=== PATIENT | male | born 1985 | race Caucasian/White ===

== ENCOUNTER 2020-01-10 10:18 | Emergency (ER) | payer MEDICAID, SELFPAY ==
[2020-01-10 10:23] VITALS: BP 155/95; PULSE 84; RESP 18; TEMP 36.6; O2SAT 98
--- NOTE | 2020-01-10 10:27 | ED.GENADUL_ITS ---
Discharge Plan Disposition Patient Disposition: HOME Condition: Fair Discharge Details Chief Complaint: AnimalBite Clinical Impression: Dog bite Primary Care Provider: None,None ED Provider: Jackie Hanna Home Meds and New Rx's Prescriptions: New amoxicillin-pot clavulanate [Augmentin] 875-125 mg tablet 1 tab PO BID Qty: 14 RF: 0 Discharge Instructions Instructions: Animal Bite (ED) Additional Instructions: Encourage rest, ice, elevation. Tylenol and/or ibuprofen as needed for discomfort. I am very concerned about potential for infection. Please take the antibiotic as prescribed. Please continue with splint to help with discomfort. You will need close follow-up, please call orthopedics Sunday to schedule follow-up for Sunday. Number listed below. Tetanus is updated today. If you develop fever/chills, increased pain, purulent discharge, redness or other new/worsening symptom please seek care urgently once again. Referrals: Luis Howell MD [ [facility] STAFF PHYSICIAN] - Medical Decision Making <IFRAH Mota - Last Filed: 01/10/20 11:50> Patient is a pleasant [id number] 34-year-old gentleman presenting today with chief complaint of dog bite to the left hand and wrist. Reports that this happened yesterday. He reports he was at his friend's house and had an unprovoked attack from the friends serg. Unknown last tetanus. He reports that he was able to verify dog's vaccination and that he is up-to-date. Suffered puncture wounds to the dorsal aspect of the left hand, wrist and 1 to the left side of the chest. Denies any shortness of breath or chest pain. No fevers or chills. States that he did wash wounds yesterday. On exam, patient is resting comfortably. He appears nontoxic. He does have notable swelling at to the dorsal aspect of the left wrist and hand. Patient has 2 puncture wounds each approximately 1 cm in length dorsal aspect of the left wrist and one smaller puncture wound on the dorsal aspect of the left hand along the radial side. Patient also has a palmar laceration at the ulnar crease of the wrist. He has limited range of motion of the wrist. He has good flexion-extension of the digits. No evidence of flexor extensor tenosynovitis. Patient has serosanguineous discharge from the dorsal wrist puncture wounds. No warmth or purulent drainage. No erythema. He has good capillary refill. Sensation is intact. He has 2+ distal pulses and brisk capillary refill. I am concerned for potential fracture given the type of dog MD crush injury to the hand and wrist. Plan for x-ray to evaluate for fracture or retained foreign body. Will re-wash the wounds. Update tetanus. Reporting has been completed regarding dog bite. Will give Tylenol and ibuprofen for discomfort. Patient was started on Augmentin. Will obtain x-rays of left wrist and hand. FINDINGS: Bones/joints: There is no evidence of acute fracture.There is no evidence of malalignment or dislocation. Healed ring finger metacarpal fracture Soft tissues: Normal. IMPRESSION: There is no evidence of acute fracture.There is no evidence of malalignment or dislocation. FINDINGS: Bones/joints: There is no evidence of acute fracture.There is no evidence of malalignment or dislocation. Healed ring finger metacarpal fracture Soft tissues: Normal. IMPRESSION: There is no evidence of acute fracture.There is no evidence of malalignment or dislocation. Discussed finding with the patient. Encourage rest, ice, elevation. Tylenol a nd ibuprofen as needed for discomfort. Patient be continued on Augmentin. I do want him to have prompt follow-up. Given the location and severity of the injury, I feel that follow-up with orthopedics would be appropriate and I would like for him to be evaluated at the beginning of the week. He was given strict return precautions. Wound care was discussed in depth. Will leave wound open to allow for drainage. We will place the patient in a thumb spica splint to help with discomfort and swelling. All his questions and concerns were addressed and he is in agreement this plan. <Luis Dill MD - Last Filed: 01/10/20 11:25> Patient seen, examined, discussed. Agree with plan of care. See Ramilaihsan's note. HPI <IFRAH Mota - Last Filed: 01/10/20 11:50> General Mode of arrival: ambulatory . Date/Time Provider Initiated Documentation: 01/10/20 10:23 . Limitations to Documentation: no limitations . Information obtained by: patient and RN notes reviewed . History of Present Illness 34 year old M presents to the emergency department with the chief complaint of dog bite left wrist/hand, described as severe, with intensity rated at 8. Quality is described as crushing, and is localized to the left and upper extremity. Patient reports no radiation. Patient started experiencing this day(s) (1) and it has been constant. Immobilization improves symptom(s), Movement worsens symptoms . Patient notes no other symptoms.. Patient did receive the following treatments prior to arrival, none Related Data Home Medications Medication Instructions Recorded Confirmed amoxicillin-pot clavulanate 1 tab PO BID #14 tab 01/10/20 [Augmentin] Previous Rx's Medication Instructions Recorded amoxicillin-pot clavulanate 1 tab PO BID #14 tab 01/10/20 [Augmentin] Allergies Allergy/AdvReac Type Severity Reaction Status Date / Time No Known Allergies Allergy Unverified 01/10/20 10:25 General Stated Complaint: AnimalBite ERICA: 3 Review of Systems <IFRAH Mota - Last Filed: 01/10/20 11:50> Constitutional Constitutional: Reports as per HPI, Denies chills, Denies fever(s), Denies headache(s) and Denies weakness ENT Ears, Nose, Mouth, and Throat: Denies headache(s) Cardiovascular Cardiovascular: Reports as per HPI Respiratory Respiratory: Reports as per HPI and Denies cough Musculoskeletal Musculoskeletal: Reports as per HPI and Denies tingling Integumentary/Breasts Skin/Breast: Reports as per HPI, Denies rash and Reports wounds Neurologic Neurologic: Reports as per HPI, Denies headache(s), Denies tingling, Denies pa resthesias and Denies weakness PFSH <IFRAH Mota - Last Filed: 01/10/20 11:50> Social History Smoking/Tobacco Use Status: Never Alcohol Intake: current Alcohol Intake frequency: a few times a week Drug use: Never Substance use type: does not use Do you feel safe at home: Yes Do you feel safe in your relationship?: Yes Exam <IFRAH Mota - Last Filed: 01/10/20 11:50> Const General: cooperative, healthy appearing, comfortable, no acute distress, well developed and well groomed Nutritional Appearance: average body habitus and well nourished Orientation: alert and awake Resp Effort & Inspection: normal respiratory effort, able to speak in complete sentences and no respiratory distress Cardio Rate: regular rate Rhythm: regular rhythm Skin Trauma: puncture (consistent with dog bite to left hand, drawn below) Neuro General: patient alert and patient awake Cognition: normal cognition Speech: speech normal Gait: normal gait Motor: muscle tone normal throughout Sensory Exam: no sensory deficits noted Extrem Left upper extremity: normal capillary refill, elbow/forearm Details: normal to inspection, wrist Details: abnormal to inspection Details: joint swelling (dorsal swelling around puncture wound), tenderness Location: of the dorsal wrist; not of the anatomic snuffbox, swelling Location: of the dorsal wrist, abnormal ROM Details: pain with active ROM Details: with extension and with flexion, laceration (puncture wounds as drawn below), normal vascular exam and radial pulse present; no unusual warmth, no ecchymosis, no crepitus, no foreign bodies and no deformity and hand Details: abnormal to inspection Details: joint swelling (dorsal left hand); no cyanosis and no deformities, normal capillary refill, neuromotor exam normal, neurosensory exam normal, tendon exam normal, tenderness Location: of the dorsal hand, vascular exam Details: radial pulse present and normal capillary refill, normal ROM of fingers, swelling Location: of the dorsal hand and puncture wound; no unusual warmth; abnormal to inspection and ROM limited Hand/finger images: 1. 2. 3. puncture wounds. Surrounding swelling. Serosanguineous discharge. No purulent discharge. No erythema or warmth. 4. Psych Appearance: grossly normal and well kempt Mental Status: mental status grossly normal Speech and Movement: speech and movement normal Course <IFRAH Mota - Last Filed: 01/10/20 11:50> Vital Signs Vital signs: Vital Signs Temperature 36.6 C 01/10/20 10:23 Pulse 84 01/10/20 10:23 Respiratory Rate 18 01/10/20 10:23 Blood Pressure 155/95 H 01/10/20 10:23 Pulse Oximetry 98 01/10/20 10:23 Temperature 36.6 C 01/10/20 10:23 Temperature Source Skin 01/10/20 10:23 Pulse 84 01/10/20 10:23 Respiratory Rate 18 01/10/20 10:23 Respiratory Effort 01/10/20 10:25 Blood Pressure 155/95 H 01/10/20 10:23 Blood Pressure Position Sitting 01/10/20 10:23 Pulse Oximetry 98 01/10/20 10:23 Oxygen Delivery Method Room Air 01/10/20 10:23 Oxygen Flow Rate 0 01/10/20 10:23 Pain Level 8 01/10/20 10:23
--- NOTE | 2020-01-10 10:30 | DI.RAD_ITS ---
EXAM: XR WRIST LT COMPLETE CLINICAL HISTORY: dog bite. TECHNIQUE: 2D digital imaging was performed. COMPARISON: No exams were available for comparison FINDINGS: BONES: No acute fracture is present. No bony destructive lesion is seen. JOINTS: The carpal bones are normally aligned. SOFT TISSUE: Soft tissue swelling is seen around the wrist. There is gauze over the dorsum of the wr ist. There is no evidence of foreign body. IMPRESSION: Soft tissue swelling. No evidence of fracture or foreign body. DATA REPOSITORY: RADIATION DOSE DELIVERED:
--- NOTE | 2020-01-10 10:30 | DI.RAD_ITS ---
EXAM: XR HAND LT COMPLETE CLINICAL HISTORY: dog bite. TECHNIQUE: 2D digital imaging was performed. COMPARISON: CR RIGHT HAND COMPLETE from 05/30/2012 FINDINGS: BONES: No acute fracture is present. No bony destructive lesion is seen. JOINTS: No dislocation present. SOFT TISSUE: There is marked soft tissue swelling over the dorsum of the hand. There is an old fract ure deformity of the mid 4th metacarpal. No acute fracture or radiopaque foreign body is identified. IMPRESSION: Soft tissue swelling. No acute bony abnormality.. DATA REPOSITORY: RADIATION DOSE DELIVERED:
[2020-01-10] MEDS: Lidocaine/Epinephri/Tetracaine Topical Gel 3 ML (10:47)
[2020-01-10] MEDS: Amoxicillin 875/Clav. 125 TAB PO (10:47)
[2020-01-10] MEDS: Acetaminophen 500 MG TAB 1000 MG PO (10:47)
[2020-01-10] MEDS: Ibuprofen 600 MG TAB PO (10:47)
--- NOTE | 2020-01-10 10:52 | NUR.NOTE ---
Nursing Note: Animal bite report faxed to [facility] Office [phone]
--- NOTE | 2020-01-10 11:10 | DI.VRAD_ITS ---
PROCEDURE INFORMATION: Exam: XR Left Hand Exam date and time: 01/10/2020 11:02 AM Age: 34 years old Clinical indication: Injury or trauma; Injury history: Dog bite; Initial encounter; Wound; Hand; Left TECHNIQUE: Imaging protocol: XR Left hand. Views: 3 or more views. COMPARISON: No relevant prior studies available. FINDINGS: Bones/joints: There is no evidence of acute fracture.There is no evidence of malalignment or dislocation. Healed ring finger metacarpal Soft tissues: Soft tissue swelling over the dorsum of the hand IMPRESSION: There is no evidence of acute fracture.There is no evidence of malalignment or dislocation. Dictated and Authenticated by: Joanne Aleman MD. Ordering:HATTIE Mejia MD
--- NOTE | 2020-01-10 11:11 | DI.VRAD_ITS ---
PROCEDURE INFORMATION: Exam: XR Left Wrist Exam date and time: 01/10/2020 11:04 AM Age: 34 years old Clinical indication: Injury or trauma; Injury history: Dog bite; Initial encounter; Wound; Wrist and hand; Left TECHNIQUE: Imaging protocol: XR Left wrist. Views: 3 or more views. COMPARISON: No relevant prior studies available. FINDINGS: Bones/joints: There is no evidence of acute fracture.There is no evidence of malalignment or dislocation. Healed ring finger metacarpal fracture Soft tissues: Normal. IMPRESSION: There is no evidence of acute fracture.There is no evidence of malalignment or dislocation. Dictated and Authenticated by: Joanne Aleman MD. Ordering:HATTIE Mejia MD
--- NOTE | 2020-01-12 10:25 | NUR.NOTE ---
Nursing Note: [facility] Officer called stating he got the message. However; the Photographer Assistant is not open at this time. The animal bite report was faxed to Nik Lyon, who is now health officer, at [facility]. Wendy Lam. Fax [phone]
== END 2020-01-10 11:55 | disposition home or self-care (01) ==
PROVIDERS: Emergency Provider Physician Assistant
DX: S67.42XA Crushing injury of left wrist and hand, initial encounter (principal); S61.432A Puncture wound without foreign body of left hand, initial encounter; S61.532A Puncture wound without foreign body of left wrist, initial encounter; W54.0XXA Bitten by dog, initial encounter
CPT/HCPCS: 29125; 90471; 99284; 73110; 73130; L3807

== ENCOUNTER 2024-06-28 06:47 | Emergency (ER) | payer MEDICAID, SELFPAY ==
[2024-06-28 06:48] VITALS: BP 138/87; PULSE 64; RESP 17; O2SAT 99
--- NOTE | 2024-06-28 06:54 | ED.GENADUL_ITS ---
Discharge Plan Disposition Patient Disposition: Home Condition: Good Discharge Details Chief Complaint: RashLesion Clinical Impression: Tick bite Primary Care Provider: Unknown,Unknown ED Provider: Roverto Burris Home Meds and New Rx's Prescriptions: No Action No Known Home Meds Discharge Instructions Additional Instructions: You were given a single dose of antibiotic to try to prevent Lyme disease. Risk of yvonne Lyme in the first place is low. Please watch for any signs of fever, headache, rash, arthralgias or myalgias over the next couple of weeks. Follow-up with primary care as needed. HPI General Mode of arrival: ambulatory . Date/Time Provider Initiated Documentation: 06/28/24 06:53 . Limitations to Documentation: no limitations . Information obtained by: patient and RN notes reviewed . HPI Narrative: Patient presents to ED with complaint of tick bite. Patient was out hunting yesterday. The power was off at home so he was unable to even realize he had ticks on him. This morning he found 3 engorged ticks that have been removed. He does report them as being deer ticks. He is presenting for prophylaxis dose of antibiotic for Lyme. He otherwise has no complaints. Related Data Home Medications ?Medication ?Instructions ?Recorded ?Confirmed Unknown [No Known Home Meds] 06/28/24 06/28/24 Allergies Allergy/AdvReac Type Severity Reaction Status Date / Time No Known Allergies Allergy Unverified 06/28/24 06:53 General Stated Complaint: RashLesion ERICA: 3 Review of Systems Narrative: Per HPI Exam Narrative Exam Narrative: Const: WDWN male in NAD. VS per triage. HEENT: NC/AT. Normal facial exam. Neck: Supple. Trachea midline. Lungs: Normal respiratory effort. Neuro: A+O x 3. Normal speech, mentation, gait. Cranial nerves II - XII grossly intact. No gross motor or sensory deficit. Skin: No evidence of retained tick pieces from sites they were removed from. Course Vital Signs Vital signs: Vital Signs Pulse 64 06/28/24 06:48 Respiratory Rate 17 06/28/24 06:48 Blood Pressure 138/87 06/28/24 06:48 Pulse Oximetry 99 06/28/24 06:48 Pulse 64 06/28/24 06:48 Respiratory Rate 17 06/28/24 06:48 Respiratory Effort Normal 06/28/24 06:52 Blood Pressure 138/87 06/28/24 06:48 Blood Pressure Position Sitting 11/09/24 06:48 Pulse Oximetry 99 06/28/24 06:48 Oxygen Delivery Method Room Air 06/28/24 06:48 Oxygen Flow Rate 0 06/28/24 06:48 Pain Level 0 06/28/24 06:48 Medical Decision Making Patient is otherwise young and healthy with no allergies and not on any medicati ons. Reports that the ticks were engorged and were also deer tick. As such we will prophylax with doxycycline 20 mg x 1. Watch for any signs or symptoms in the future for any tick related type illness. 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) Social History Smoking/Tobacco Use Status: Never Smoking risk assessment performed?: Yes Alcohol Intake: current Alcohol Intake frequency: a few times a week Drug use: Never Substance use type: does not use Current gender identity: male Do you feel safe at home: Yes Do you feel safe in your relationship?: Yes PAWSS Have you Been Recently Intoxicated or Drunk Within the Last 30 days?: No Have you Ever Experienced Previous Episodes of Alcohol Withdrawal?: No Have you ever Experienced Withdrawal Seizures?: No Have you ever Experienced Delirium Tremens(DT)s?: No Have you ever undergone Alcohol Rehabilitation Treatment (i.e, inpt ot outpatient treatment programs)?: No Have you ever Experienced Blackouts?: No Have you ever Combined Alcohol with other Downers within the last 90 days?: No Have you ever Combined Alcohol with any other Substance of Abuse during the last 90 days?: No Result: 0
[2024-06-28] MEDS: Doxycycline Hyclate 100 MG CAP 200 MG PO (07:05)
[2024-06-28 07:08] VITALS: BP 153/98; PULSE 70; RESP 18; O2SAT 96
--- NOTE | 2024-06-29 10:56 | NUR.NOTE ---
Nursing Note: Patient called stating that the prescription was not received by his pharmacy. There was no prescription that was send. He received his one time dose of antibiotics while he was here and prior to discharge. He was informed that there is no other antibiotics that are necessary at this time. Accessed the chart to view MD note from visit yesterday.
== END 2024-06-28 07:15 | disposition home or self-care (01) ==
LOC: ER 07:15
PROVIDERS: Emergency Provider Emergency Medicine
DX: S50.862A Insect bite (nonvenomous) of left forearm, initial encounter (principal); S00.96XA Insect bite (nonvenomous) of unspecified part of head, initial encounter; S30.861A Insect bite (nonvenomous) of abdominal wall, initial encounter; W57.XXXA Bitten or stung by nonvenomous insect and other nonvenomous arthropods, initial encounter
CPT/HCPCS: 99283